=== PATIENT | male | born 1995 | race Caucasian/White ===

== ENCOUNTER 2020-01-29 22:39 | Emergency (ER) | payer BC ==
[2020-01-29] MEDS ORDERED: Lidocaine 1% 30 ML SDV INJECT ONE (22:43)
[2020-01-29] MEDS ORDERED: Bacitracin Oint 1 GM U/D Packet TOP ONE (22:43)
--- NOTE | 2020-01-29 22:44 | EDM.PDOC ---
ED HPI GENERAL MEDICAL PROBLEM - General Stated Complaint: HOOK IN FINGER Time Seen by Provider: 01/29/20 23:10 Source of Information: Reports: Patient History Limitations: Reports: No Limitations - History of Present Illness INITIAL COMMENTS - FREE TEXT/NARRATIVE: fish hook in left 4th finger [employer]. - Related Data Allergies Allergy/AdvReac Type Severity Reaction Status Date / Time No Known Allergies Allergy Verified 01/29/20 23:11 Home Meds: Home Meds . [No Known Home Meds] 01/29/20 [History] ED ROS GENERAL - Review of Systems Review Of Systems: Comprehensive ROS is negative, except as noted in HPI. ED EXAM, SKIN/RASH Exam: See Below Exam Limited By: No Limitations General Appearance: Alert, Mild Distress Eye Exam: Bilateral Eye: EOMI Ears: Normal External Exam, Hearing Grossly Normal Nose: Normal Inspection Throat/Mouth: Normal Inspection Head: Atraumatic, Normocephalic Neck: Normal Inspection, Full Range of Motion Respiratory/Chest: No Respiratory Distress, Normal Breath Sounds Cardiovascular: Normal Peripheral Pulses Neurological: Alert, Oriented Psychiatric: Normal Affect Skin: Warm, Dry Characteristics: Other (single chloé of trebel hook palmar surface above MIP.) ED SKIN PROCEDURES - Foreign Body Removal Consent Obtained:: Patient Performing Doctor:: Joanne Villanueva Foreign Body Other Location Comment:: left 4th finger between MIP and DIP castillo surface, single chloé of treble hook. Anesthesia Type: Local (1% lido, 1.5ml) Complications:: No Comments:: single chloé pushed thru, chloé cut off, remainder of hook reversed out. No complications, tolerated well. Course - Vital Signs Last Recorded V/S: Last Vital Signs Temp 97.8 F 01/29/20 23:11 Pulse 67 01/29/20 23:11 Resp 16 01/29/20 23:11 BP 162/96 H 01/29/20 23:11 Pulse Ox 99 01/29/20 23:11 - Orders/Labs/Meds Orders: Active Orders 24 hr Category Date Time Status Vaccines to be Administered [RC] PER UNIT ROUTINE Care 01/29/20 23:10 Active Meds: Medications Discontinued Medications Generic Name Dose Route Start Last Admin Trade Name Freq PRN Reason Stop Dose Admin Bacitracin 1 dose 01/29/20 22:43 01/29/20 23:21 Bacitracin Oint 1 Gm TOP 01/29/20 22:44 1 dose ONETIME ONE Administration Diphtheria/Tetanus/Acell Pertussis 0.5 ml 01/29/20 23:10 01/29/20 23:21 Adacel IM 01/29/20 23:11 0.5 ml .ONCE ONE Administration Lidocaine HCl 30 ml 01/29/20 22:43 01/29/20 23:20 Xylocaine-Mpf 1% INJECT 01/29/20 22:44 30 ml ONETIME ONE Administration Departure - Departure Time of Disposition: 23:23 Disposition: Home, Self-Care 01 Condition: Good Clinical Impression: Removal of foreign body Fish hook injury of finger of left hand Qualifiers: Encounter type: initial encounter Qualified Code(s): S69.92XA - Unspecified injury of left wrist, hand and finger(s), initial encounter - Discharge Information *PRESCRIPTION DRUG MONITORING PROGRAM REVIEWED*: No *COPY OF PRESCRIPTION DRUG MONITORING REPORT IN PATIENT KAI: No Instructions: Puncture Wound, [id number] Forms: ED Department Discharge Additional Instructions: keep area clean and dry wash twice daily with soap and water follow up if redness swelling or drainage from area Sepsis Event Note - Focused Exam Vital Signs: Vital Signs Temp Pulse Resp BP Pulse Ox 01/29/20 23:11 97.8 F 67 16 162/96 H 99 Date Exam was Performed: 01/30/20 Time Exam was Performed: 02:48 - My Orders Last 24 Hours: My Active Orders 01/29/20 23:10 Vaccines to be Administered [RC] PER UNIT ROUTINE - Assessment/Plan Last 24 Hours: My Active Orders 01/29/20 23:10 Vaccines to be Administered [RC] PER UNIT ROUTINE
[2020-01-29] MEDS ORDERED: Diphtheria,Pertussis(Acell),Tetanus Vaccine 0.5 ML SDV IM ONE (23:10)
== END 2020-01-29 23:24 | disposition home or self-care (01) ==
LOC: DL.ED 22:39
DX: S60.455A Superficial foreign body of left ring finger, initial encounter (principal); Z23 Encounter for immunization; W45.8XXA Other foreign body or object entering through skin, initial encounter
CPT/HCPCS: 90471; 90715; 99282; J2001